=== PATIENT | male | born 1995 | race Asian ===

== ENCOUNTER 2018-07-25 14:42 | Emergency (ER) | payer SELFPAY ==
[2018-07-25 14:58] VITALS: BP 97/54
--- NOTE | 2018-07-25 15:05 | ED Physician Documentation ---
General Adult - HPI Stated Complaint: Emesis Chief Complaint: Nausea,Vomiting,Diarrhea Onset: days ago (6) Timing: still present Severity: mild (he states on the [birth year] (his birthday) he was out drinking and since he has had nausea vomiting and diarrhea. Denies fever or rash. No other sick contacts. He denies any other complaints. He has not tried any OTC meds. No vomiting or diarrhea today . Last diarrhea yesterday am ) Further Comments: no Last known Well Code/Unknown Code: Unknown - ROS CONST: weakness. denies: fever, sweating, recent illness EYES/ENT: denies: sore throat CVS/RESP: denies: chest pain, shortness of breath, cough GI/: vomiting, nausea, diarrhea (hasnt had vomiting or diarrhea since yesteray ). denies: abdominal pain, problems urinating MS/SKIN/LYMPH: denies: neck pain, joint pain, leg swelling, rash NEURO/PSYCH: denies: headache, fainting, dizziness - PAST HX Past History: other (ADD) Immunizations: UTD Allergies/Adverse Reactions: Allergies Allergy/AdvReac Type Severity Reaction Status Date / Time No Known Allergies Allergy Verified 07/25/18 14:59 Home Medications: Ambulatory Orders Medication Instructions Recorded Lisdexamfetamine Dimesylate 1 tab PO DAILY 07/25/18 [Vyvanse] - SOCIAL HX Smoking History: non-smoker Alcohol Use: occasionally Drug Use: marijuana - FAMILY HX Family History: No - VITAL SIGNS Vital Signs: Vital Signs Temp Pulse Resp BP Pulse Ox 97.9 F 65 15 97/54 98 07/25/18 14:50 07/25/18 14:50 07/25/18 14:50 07/25/18 14:50 07/25/18 14:50 - REVIEWED ASSESSMENTS Nursing Assessment Reviewed: Yes Vitals Reviewed: Yes Progress - Progress Progress: 1520: admits to marijuana and Vyvanse use DG 1545: no nausea noted DG General Adult Physical Exam - PHYSICAL EXAM GENERAL APPEARANCE: no distress EENT: eye inspection normal, ENT inspection normal NECK: normal inspection RESPIRATORY: no resp distress, chest non-tender, breath sounds normal CVS: reg rate & rhythm, heart sounds normal ABDOMEN: soft, no organomegaly, normal bowel sounds, no abdominal bruit, no distension, non-tender BACK: normal inspection, no CVA tenderness SKIN: warm/dry, normal color EXTREMITIES: non-tender, normal range of motion, no evidence of injury, no edema NEURO: oriented X3 Discharge Clincal Impression: Nausea & vomiting Qualifiers: Vomiting type: unspecified Vomiting Intractability: unspecified Qualified Code(s): R11.2 - Nausea with vomiting, unspecified Referrals: Primary Doctor,No [Primary Care Provider] - 2 Days Comments: 1. Zofran 4 mg take 1 by mouth every 8 hours as needed for nausea 2. [place] diet 3. Increase fluids 4. No alcohol 5. See PCP in 2-4 days if no improvement 6. Return to ER for any concerns Condition: Stable Disposition: 01 HOME, SELF-CARE Decision to Admit: NO Date of Decison to Admit: 07/25/18 Decision Time: 15:49
[2018-07-25] MEDS ORDERED: 0.9 % SODIUM CHLORIDE 1,000 ML IV ONE (15:19)
[2018-07-25] MEDS ORDERED: 0.9 % SODIUM CHLORIDE 1,000 ML IV SCH (15:30)
[2018-07-25 15:31] LABS: BASOPHILS % 0.6 (0.0-1.5); EOSINOPHILS % 0.7 % (0.0-6.8); MEAN CORPUSCULAR HEMOGLOBIN 30.9 pg (28.0-34.0); MEAN CORPUSCULAR VOLUME 89.7 fl (80.0-100.0); MONOCYTES % 14.5 % (0.0-11.0); NEUTROPHILS # 3.1 # k/uL (1.4-7.7)
[2018-07-25 15:37] LABS: eGFR (Non-African) > 60
[2018-07-25] MEDS ORDERED: ONDANSETRON HCL 4 MG TAB.RAPDIS PO ONE (15:41)
[2018-07-25 17:28] LABS: APPEARANCE,URINE CLEAR (CLEAR); COLOR,URINE ORANGE (YELLOW)
[2018-07-25 17:29] LABS: OCCULT BLOOD,URINE NEGATIVE (NEGATIVE); UROBILINOGEN URINE 0.2 Eu (0.2-1.0)
[2018-07-25 17:30] LABS: CANNABINOIDS NON NEGATIVE ng/mL (< 50)
[2018-07-25 17:31] LABS: METHYLENEDIOXYMETHAMPHETAMINE NEGATIVE ng/mL (<500)
[2018-07-30 14:35] LABS: CANNABINOIDS CONFIRMATION >150 ng/mL (<15)
== END 2018-07-25 16:11 | disposition home or self-care (01) ==
LOC: ED 14:42
DX: R11.2 Nausea with vomiting, unspecified (principal)
CPT/HCPCS: 80053; 80320; 80377; 81002; 85025; A9270; J7030; 96365; 99284; G0480; G0481; S1016